=== PATIENT | female | born 1940 | race Caucasian/White ===

== ENCOUNTER 2017-11-15 10:24 | Inpatient (IN) | payer OTHER ==
[~2017-11-15] VITALS: Ht 170.2 cm; Wt 67.1 kg
[2017-11-15] MEDS ORDERED: DIOVAN HCT 1601 EAC1 (13:53)
[2017-11-15] MEDS ORDERED: PAXIL20 MG (13:53)
[2017-11-15] MEDS ORDERED: CLORAZEPATE DIP15 MG (13:54)
[2017-11-15] MEDS ORDERED: RANITIDINE HCL150 M1 (13:54)
[2017-11-15] MEDS ORDERED: NEURONTIN600 MG (13:54)
[2017-11-15] MEDS ORDERED: DILTIAZEM 24HR240 MG (13:55)
[2017-11-15] MEDS ORDERED: APRODINE TABLE1 EACH (13:55)
[2017-11-15] MEDS ORDERED: LIPITOR20 MG (13:57)
[2017-11-27] MEDS ORDERED: XARELTO20 MG PO (09:46)
[2017-11-27] MEDS ORDERED: PREDNISONE10 MG PO (09:46)
[2017-11-27] MEDS ORDERED: DILTIAZEM 24HR300 MG PO (09:46)
[2017-11-27] MEDS ORDERED: AVAPRO150 MG PO (09:46)
[2017-11-27] MEDS ORDERED: ATORVASTATIN CA40 MG PO (13:24)
[2017-11-27] MEDS ORDERED: POTASSIUM99 M1 PO (13:24)
== END 2017-11-27 12:13 | disposition home health service (06) | DRG 202 ==
LOC: ER 10:24 → MEDI 17:14 → SEC-K 17:14 → MEDI 18:02
PROC: 4A033R1 Measurement of Arterial Saturation, Peripheral, Percutaneous Approach (ICD-10-PCS; principal; 2017-11-15)
PROC: BW24ZZZ Computerized Tomography (CT Scan) of Chest and Abdomen (ICD-10-PCS; 2017-11-15)
PROC: 3E0F7GC Introduction of Other Therapeutic Substance into Respiratory Tract, Via Natural or Artificial Opening (ICD-10-PCS; 2017-11-15)
PROC: B246ZZZ Ultrasonography of Right and Left Heart (ICD-10-PCS; 2017-11-20)
PROC: 4A12X4Z Monitoring of Cardiac Electrical Activity, External Approach (ICD-10-PCS; 2017-11-20)
DX: J45.41 Moderate persistent asthma with (acute) exacerbation (principal); J44.1 Chronic obstructive pulmonary disease with (acute) exacerbation; R09.02 Hypoxemia; I11.9 Hypertensive heart disease without heart failure; E87.6 Hypokalemia; I48.0 Paroxysmal atrial fibrillation; I25.10 Atherosclerotic heart disease of native coronary artery without angina pectoris; I25.2 Old myocardial infarction; I34.0 Nonrheumatic mitral (valve) insufficiency; F41.8 Other specified anxiety disorders